=== PATIENT | male | born 1965 | race American Indian/Alaskan Native ===

== ENCOUNTER 2018-04-28 10:32 | Emergency (ER) | payer OTHER, MEDICAID, SELFPAY ==
[2018-04-28 10:46] VITALS: BP 155/106; PULSE 113; RESP 24; TEMP 36.8; O2SAT 99; BMI 56.2
--- NOTE | 2018-04-28 11:01 | ED.ABDPAIN ---
HPI - Abdominal Pain General Chief Complaint: Abdominal Pain Stated Complaint: bad stomach pain for an hour Time Seen by Provider: 04/28/18 10:57 Source: patient Mode of arrival: ambulatory Limitations: no limitations History of Present Illness HPI narrative: Patient complains of abdominal pain and vomiting for the last 3 hr after helping his elderly aunt and uncle move some boxes. Patient states that he has an ongoing problem with an abdominal wall hernia. He has had multiple surgeries and is actually scheduled to see his surgeon again next week to begin the preop process for another hernia repair. Patient states that these kinds of symptoms usually happen when he has strained the hernia area. Patient denies fevers. He was feeling fine before lifting boxes 3 hr ago. Patient states he has chronic diarrhea. MD complaint: abdominal pain Onset (ago): hour(s) (Three) Pain Consistency: constant Location: periumbilical Severity: moderate Severity scale (1-10): 8 Quality: cramping, stabbing and aching Radiation: none Migration to: no migration Relieving factors: nothing Exacerbating factors: vomiting and movement Context: other Associated symptoms: nausea and vomiting Treatments prior to arrival: other (States his oxycodone isn't touching it.) Related Data Home Medications Medication Instructions Recorded Confirmed albuterol sulfate [ProAir HFA] 2 puff INHALATION Q4H PRN 04/28/18 04/28/18 bupropion HCl 1 tab PO BID 04/28/18 04/28/18 cetirizine 1 tab PO DAILY 04/28/18 04/28/18 cholecalciferol (vitamin D3) 1 cap PO DAILY 04/28/18 04/28/18 [Vitamin D3] dicyclomine 1 tab PO TID PRN 04/28/18 04/28/18 fluticasone 1 spray INTRANASAL DIRECTED 04/28/18 04/28/18 ketorolac 1 drp OPHTHALMIC (EYE) DIRECTED 04/28/18 04/28/18 ketotifen fumarate 1 drp OPHTHALMIC (EYE) DIRECTED 04/28/18 04/28/18 omeprazole 1 cap PO QAM 04/28/18 04/28/18 ondansetron HCl 1 tab PO PRN PRN 04/28/18 04/28/18 oxycodone 1 tab PO Q4H PRN 04/28/18 04/28/18 pantoprazole 40 mg PO DAILY 04/28/18 04/28/18 ranitidine HCl 300 mg PO BEDTIME 04/28/18 04/28/18 Previous Rx's Medication Instructions Recorded dicyclomine 10 mg PO QID #20 cap 04/28/18 hydrocodone-acetaminophen [Vicodin 1 tab PO Q4-6H PRN #14 tab 04/28/18 ES] loperamide [Imodium A-D] 2 mg PO Q2-4H PRN #120 ml 04/28/18 Allergies Allergy/AdvReac Type Severity Reaction Status Date / Time Cephalexin Allergy Unknown Uncoded 04/28/18 10:46 EGGS Allergy Unknown DIARRHEA,RA Uncoded 04/28/18 10:46 SH From PROPOXYPHENE NAPSYLATE Allergy Unknown Uncoded 04/28/18 10:46 & ACETAMI... MILK Allergy Unknown DIARRHEA Uncoded 04/28/18 10:46 RASH SULFA (sulfonamide) Allergy Unknown Uncoded 04/28/18 10:46 Review of Systems Review of Systems All systems reviewed & are unremarkable except as noted in HPI and below Constitutional Denies chills, Denies fever(s), Denies lethargy and Denies weakness Eyes Denies change in vision, Denies eye discharge, Denies irritation and Denies loss of vision ENT Ears, Nose, Mouth, and Throat: Denies change in voice, Denies neck pain and Denies sore throat Cardiovascular Denies chest pain, Denies irregular heart rhythm, Denies lightheadedness, Denies palpitations, Denies dyspnea, Denies dyspnea on exertion and Denies orthopnea Respiratory Denies cough, Denies dyspnea, Denies dyspnea on exertion and Denies wheezing Gastrointestinal Gastrointestinal: Reports abdominal pain, Denies change in bowel habits, Reports diarrhea, Reports nausea and Reports vomiting Genitourinary Denies hematuria, Denies flank pain, Denies urinary incontinence and Denies urinary urgency Musculoskeletal Denies neck pain Integumentary/Breasts Denies pruritus, Denies erythema, Denies rash and Denies wounds Neurologic Denies confusion, Denies loss of vision and Denies weakness Psychiatric Denies anxiety, Denies confusion, Denies depression, Denies homicidal ideation and Denies suicidal ideation Endocrine Denies palpitations Hematologic/Lymphatic Denies easy bruising Allergic/Immunologic Denies wheezing [facility] Medical History Abdominal wall hernia (Acute) Chronic diarrhea (Acute) Surgical History H/O hernia repair (Acute) History of bowel resection (Acute) Social History Smoking Status: Current every day smoker Exam Initial Vital Signs Initial Vital Signs: Vital Signs Temperature 98.3 F 04/28/18 10:46 Pulse Rate 113 H 04/28/18 10:46 Respiratory Rate 24 04/28/18 10:46 Blood Pressure 155/106 H 04/28/18 10:46 Pulse Oximetry 99 04/28/18 10:46 Const General: cooperative and well developed Nutritional Appearance: well nourished Orientation: alert, awake, oriented x3 and not confused HENOK Head: normocephalic and atraumatic Ears: external ears normal Nose: external nose normal and No nasal discharge Face and sinus: face symmetric and No dry mucous membranes Mouth: oral mucosae normal and moist mucous membranes Teeth and gingiva: dentition normal Eyes General: appearance normal, both eyes and all related structures Eyelids: eyelids normal Conjunctivae: conjunctivae normal Sclera: sclerae normal Pupils: PERRL EOM: EOM intact bilaterally Neck Neck: normal visual inspection, trachea midline, No lymphadenopathy, No midline deformity and No JVD Lymphatic: No lymphedema Chest Chest: normal inspection of the chest Resp Effort & Inspection: normal respiratory effort, able to speak in complete sentences, no respiratory distress and no use of accessory muscles Auscultation: clear to auscultation bilaterally, no rales, no rhonchi and no wheezes Cardio Rate: regular rate Rhythm: regular rhythm Heart Sounds: no click, no gallops, no murmurs and no rubs Pulses: normal peripheral pulses GI Inspection: distended, large pannus and obesity Palpation: soft, no hepatosplenomegaly, No guarding, No pulsatile mass and tender (Moderate, diffuse; worse on the left side) Other: Patient has extensive surgical scarring over his abdominal wall, consistent with history of multiple surgeries. No mass or incarcerated hernia is palpable. Patient has no rebound tenderness. He intermittently dry heaves. Back/Spine/Pelvis Back: No CVA tenderness Cervical Spine: cervical ROM normal and No pain with cervical ROM Thoracic/Lumbar Spine: thoracic and lumbar spine normal to inspection Skin General: no rashes or lesions noted, No jaundice and No petechiae Neuro General: alert, oriented x3, gait normal and no focal motor deficits Speech: speech normal Extrem General: full ROM, no clubbing, cyanosis or edema, no pedal edema and no calf tenderness Psych Appearance: well kempt Mental Status: mental status grossly normal Attitude: cooperative Thought Content: normal and suicidality Judgment: judgment good Course Course Narrative: Patient was treated symptomatically in the emergency department, and worked up with labs and CT scan of the abdomen and pelvis. Labs were unremarkable, and CT scan showed the large abdominal wall hernia which is known, but no other acute abnormalities. There was no evidence of incarceration or strangulation. Patient was re-evaluated after symptomatic treatment and found to be feeling better. We have discussed home management of his symptoms, as well as the usual indications for return. Orders Ordered: ED Orders 04/28/18 11:00 Complete Blood Count AUTO DIFF Stat Comprehensive Metabolic Panel Stat Lipase Stat 04/28/18 13:18 CT abdomen pelvis w con Stat Discontinued Medications Hydromorphone HCl (Dilaudid) 1 mg IV NOW ONE Stop: 04/28/18 11:02 Last Admin: 04/28/18 11:09 Dose: 1 mg Hydromorphone HCl (Dilaudid) 2 mg IV NOW ONE Stop: 04/28/18 12:06 Last Admin: 04/28/18 12:16 Dose: 2 mg Hydromorphone HCl (Dilaudid) 2 mg IV NOW ONE Stop: 04/28/18 13:19 Last Admin: 04/28/18 13:34 Dose: 2 mg Sodium Chloride (Normal Saline 0.9%) 1,000 mls @ 1,000 mls/hr IV BOLUS ONE Stop: 04/28/18 12:00 Last Infusion: 04/28/18 13:05 Dose: 0 mls/hr Admin: 04/28/18 11:08 Dose: 1,000 mls/hr Lorazepam (Ativan) 1 mg IV NOW ONE Stop: 04/28/18 13:19 Last Admin: 04/28/18 13:34 Dose: 1 mg Metoclopramide HCl (Reglan) 10 mg IV NOW ONE Stop: 04/28/18 12:06 Last Admin: 04/28/18 12:16 Dose: 10 mg Ondansetron HCl (Zofran) 4 mg IV NOW ONE Stop: 04/28/18 11:02 Last Admin: 04/28/18 11:05 Dose: 4 mg Vital Signs - 8 hr 04/28/18 10:46 04/28/18 12:52 Temperature 98.3 F 98.3 F Pulse Rate 113 H 82 Respiratory Rate 24 18 Blood Pressure 155/106 H Blood Pressure [Left Arm] 140/66 Pulse Oximetry 99 97 MDM - Abdominal Pain Medical Records Attestation: I reviewed the patient's medical records. Lab Data Attestation: I reviewed the patient's lab results. Result diagrams: 04/28/18 11:00 04/28/18 11:00 Lab Results 04/28/18 04/28/18 Range/Units 11:00 11:00 WBC 7.1 (4.5-11.0) X10^3/uL RBC 5.59 (4.5-5.9) X10^6/uL Hgb 14.7 (13.5-17.5) g/dL Hct 44.3 (41-53) % MCV 79.2 L (80-100) fL MCH 26.4 (26-34) PG MCHC 33.3 (30-36) % RDW 17.1 H (11.6-14.8) % Plt Count 202 (150-400) X10^3/uL Neut % (Auto) 63.2 (50-75) % Lymph % (Auto) 29.3 (25-40) % [place] % (Auto) 6.0 (3-14) % Eos % (Auto) 1.1 L (2-4) % Baso % (Auto) 0.4 (0-2) % Neut # (Auto) 4500 (3194-1584) /uL Sodium 140 (137-145) mmol/L Potassium 4.4 (3.4-5.1) mmol/L Chloride 105 (98-107) mmol/L Carbon Dioxide 25 (22-32) mmol/L BUN 10 (9-20) mg/dL Creatinine 0.80 (0.66-1.25) mg/dL Estimated GFR > 60.0 (>60) mL/min BUN/Creatinine Ratio 12.5 (6-22) Glucose 117 H (70-100) mg/dL Calcium 9.1 (8.4-10.2) mg/dL Total Bilirubin 0.4 (0.2-1.3) mg/dL AST 30 (17-59) IU/L ALT 19 L (21-72) IU/L Alkaline Phosphatase 126 (38-126) U/L Total Protein 7.8 (6.3-8.2) g/dL Albumin 4.2 (3.5-5.0) g/dL Globulin 3.6 (1.7-4.1) g/dL Albumin/Globulin Ratio 1.2 (1.0-2.8) Lipase 97 (23-300) U/L Imaging Data CT scan - abdomen: Radiologist's impression: PROCEDURE: CT ABDOMEN PELVIS W CON INDICATIONS: abdominal pain, vomiting, hernia TECHNIQUE: After the administration of oral and intravenous contrast, 5 mm thick sections acquired from the diaphragms to the symphysis. 5 mm thick coronal and sagittal reformats were performed. For radiation dose reduction, the following was used: automated exposure control, adjustment of mA and/or kV according to patient size. COMPARISON: [facility], CT, CT ABDOMEN PELVIS WITH CONTRAST, 03/22/2018, 9:02. [facility], CT, CT ABDOMEN PELVIS WITH CONTRAST, 02/02/2018, 10:13. [facility], CT, ABD/PELVIS W/CON (PNL), 03/29/2012, 20:22. FINDINGS: Image quality: Diagnostic. ABDOMEN: Lung bases: Lung bases are clear. Heart size is normal. Solid organs: Liver is normal in size. No focal liver lesions are evident. The liver is noted to be hypodense when compared to the spleen. Gallbladder is surgically absent with. Biliary system is non-dilated. Pancreas enhances normally. Spleen is normal in size and enhancement. No adrenal nodules. Kidneys are normal in size and enhancement, without hydronephrosis. Punctate nonobstructing mid to superior right renal calculus is unchanged. Peritoneum and bowel: There is a large ventral hernia containing multiple bowel loops. No significantly dilated small bowel loops are evident to suggest a complete bowel obstruction. However, there are a few borderline prominent fluid-filled loops of small bowel within this region. Fat containing infraumbilical ventral hernia is also present. Moderate residual stool is seen within the colon. No free fluid, loculated fluid collection or free air is evident. Nodes and vessels: No retroperitoneal or mesenteric adenopathy. Aorta and inferior vena cava are normal in caliber. Bones: No acute fractures or suspicious osseous lesions are evident. The degree of degenerative changes of the spine have not significantly progressed. PELVIS: Genitourinary: Bladder wall thickness is normal. The prostate is not enlarged. Miscellaneous: No inguinal hernias or adenopathy. Bones: No suspicious bony lesions. No vertebral body compression fractures. IMPRESSION: 1. Large abdominal hernia containing multiple bowel loops. 2. No obstruction. 3. Constipation. 4. Probable hepatic steatosis. 5. Punctate nonobstructing right renal calculus is unchanged. Dictated by: Santos Sr M.D. on 04/28/2018 at 13:13 Approved by: Santos Sr M.D. on 04/28/2018 at 13:18 Discharge Plan Departure Patient Disposition: Home Clinical Impression: Abdominal pain, Hernia of anterior abdominal wall Discharge Date/Time: 04/28/18 14:58 Instructions: DI for Abdominal Pain-Adult Activity Restrictions/Additional Instructions: Your labs look good. Your CT scan shows the hernia, but otherwise no acute abnormalities or serious problems. Please continue your home medications, as directed. Please follow up with your surgeon as planned to prepare for your next abdominal surgery. Prescriptions: New dicyclomine 10 mg capsule 10 mg PO QID Qty: 20 RF: 0 loperamide [Imodium A-D] 1 mg/7.5 mL liquid 2 mg PO Q2-4H PRN (Reason: loose stool) Qty: 120 RF: 0 hydrocodone-acetaminophen [Vicodin ES] 7.5-300 mg tablet 1 tab PO Q4-6H PRN (Reason: pain) Qty: 14 RF: 0 No Action bupropion HCl 150 mg tablet extended release 12 hr 1 tab PO BID RF: 0 cetirizine 10 mg tablet 1 tab PO DAILY RF: 0 ketotifen fumarate 0.025 % (0.035 %) drops 1 drp ophthalmic (eye) DIRECTED RF: 0 ondansetron HCl 8 mg tablet 1 tab PO PRN PRN (Reason: Nausea) RF: 0 omeprazole 40 mg capsule,delayed release(DR/EC) 1 cap PO QAM RF: 0 dicyclomine 20 mg tablet 1 tab PO TID PRN (Reason: irritable bowel) RF: 0 pantoprazole 40 mg tablet,delayed release (DR/EC) 40 mg PO DAILY RF: 0 ranitidine HCl 150 mg tablet 300 mg PO BEDTIME RF: 0 albuterol sulfate [ProAir HFA] 90 mcg/actuation HFA aerosol inhaler 2 puff Inhalation Q4H PRN (Reason: Shortness Of Breath) RF: 0 fluticasone 50 mcg/actuation spray,suspension 1 spray Intranasal DIRECTED RF: 0 oxycodone 5 mg tablet 1 tab PO Q4H PRN (Reason: pain) RF: 0 ketorolac 0.4 % drops 1 drp ophthalmic (eye) DIRECTED RF: 0 cholecalciferol (vitamin D3) [Vitamin D3] 1,000 unit tablet 1 cap PO DAILY RF: 0
[2018-04-28] MEDS: ONDANSETRON 4 MG/2 ML INJ IV (11:05)
[2018-04-28 11:08] LABS: Add Manual Diff / Slide Review NO; Basophils Percent Auto 0.4 % (0-2); Eosinophils Percent Auto 1.1 % (2-4); Hematocrit 44.3 % (41-53); Hemoglobin 14.7 g/dL (13.5-17.5); Lymphocytes Percent Auto 29.3 % (25-40); Mean Corpuscular HGB Conc 33.3 % (30-36); Mean Corpuscular Hemoglobin 26.4 PG (26-34); Mean Corpuscular Volume 79.2 fL (80-100); Neutrophils Absolute Auto 4500 /uL (3000-5900); Neutrophils Percent Auto 63.2 % (50-75); Platelet Count 202 X10^3/uL (150-400); Red Blood Cell Count 5.59 X10^6/uL (4.5-5.9); Red Cell Distribution Width 17.1 % (11.6-14.8); White Blood Cell Count 7.1 X10^3/uL (4.5-11.0)
[2018-04-28] MEDS: SODIUM CHLORIDE 0.9% 1,000 ML 1000 ML IV (11:08)
[2018-04-28] MEDS: HYDROMORPHONE 1 MG INJ IV (11:09)
[2018-04-28 11:23] LABS: Alanine Aminotransferase 19 IU/L (21-72); Albumin 4.2 g/dL (3.5-5.0); Albumin Globulin Ratio 1.2 (1.0-2.8); Alkaline Phosphatase 126 U/L (38-126); Aspartate Aminotransferase 30 IU/L (17-59); BUN Creatinine Ratio 12.5 (6-22); Bilirubin Total 0.4 mg/dL (0.2-1.3); Blood Urea Nitrogen 10 mg/dL (9-20); Calcium 9.1 mg/dL (8.4-10.2); Carbon Dioxide 25 mmol/L (22-32); Chloride 105 mmol/L (98-107); Estimated Glomerular Filt Rate > 60.0 mL/min (>60); Globulin 3.6 g/dL (1.7-4.1); Glucose 117 mg/dL (70-100); HEMOLYSIS 19 (0-50); Lipase 97 U/L (23-300); Potassium 4.4 mmol/L (3.4-5.1); Sodium 140 mmol/L (137-145); Total Protein 7.8 g/dL (6.3-8.2)
[2018-04-28] MEDS: HYDROMORPHONE 1 MG INJ 2 MG IV ×2 (12:16→13:34)
[2018-04-28] MEDS: METOCLOPRAMIDE 10 MG/2 ML INJ IV (12:16)
[2018-04-28 12:52] VITALS: BP 140/66; PULSE 82; RESP 18; TEMP 36.8; O2SAT 97
--- NOTE | 2018-04-28 13:18 | DI.CT.S_ITS ---
PROCEDURE: CT ABDOMEN PELVIS W CON INDICATIONS: abdominal pain, vomiting, hernia TECHNIQUE: After the administration of oral and intravenous contrast, 5 mm thick sections acquired from the diaphragms to the symphysis. 5 mm thick coronal and sagittal reformats were performed. For radiation dose reduction, the following was used: automated exposure control, adjustment of mA and/or kV according to patient size. COMPARISON: [facility], CT, CT ABDOMEN PELVIS WITH CONTRAST, 03/22/2018, 9:02. [facility], CT, CT ABDOMEN PELVIS WITH CONTRAST, 02/02/2018, 10:13. [facility], CT, ABD/PELVIS W/CON (PNL), 03/29/2012, 20:22. FINDINGS: Image quality: Diagnostic. ABDOMEN: Lung bases: Lung bases are clear. Heart size is normal. Solid organs: Liver is normal in size. No focal liver lesions are evident. The liver is noted to be hypodense when compared to the spleen. Gallbladder is surgically absent with. Biliary system is non-dilated. Pancreas enhances normally. Spleen is normal in size and enhancement. No adrenal nodules. Kidneys are normal in size and enhancement, without hydronephrosis. Punctate nonobstructing mid to superior right renal calculus is unchanged. Peritoneum and bowel: There is a large ventral hernia containing multiple bowel loops. No significantly dilated small bowel loops are evident to suggest a complete bowel obstruction. However, there are a few borderline prominent fluid-filled loops of small bowel within this region. Fat containing infraumbilical ventral hernia is also present. Moderate residual stool is seen within the colon. No free fluid, loculated fluid collection or free air is evident. Nodes and vessels: No retroperitoneal or mesenteric adenopathy. Aorta and inferior vena cava are normal in caliber. Bones: No acute fractures or suspicious osseous lesions are evident. The degree of degenerative changes of the spine have not significantly progressed. PELVIS: Genitourinary: Bladder wall thickness is normal. The prostate is not enlarged. Miscellaneous: No inguinal hernias or adenopathy. Bones: No suspicious bony lesions. No vertebral body compression fractures. IMPRESSION: 1. Large abdominal hernia containing multiple bowel loops. 2. No obstruction. 3. Constipation. 4. Probable hepatic steatosis. 5. Punctate nonobstructing right renal calculus is unchanged. Dictated by: Santos Sr M.D. on 04/28/2018 at 13:13 Approved by: Santos Sr M.D. on 04/28/2018 at 13:18
[2018-04-28] MEDS: LORazepam 2 MG/ML SYRINGE 1 MG IV (13:34)
[2018-04-28 14:55] VITALS: BP 161/94; PULSE 103; RESP 19; TEMP 37.4; O2SAT 97
== END 2018-04-28 14:58 | disposition home or self-care (01) ==
PROVIDERS: Emergency Provider Emergency Medicine
DX: K43.9 Ventral hernia without obstruction or gangrene (principal); R10.9 Unspecified abdominal pain
CPT/HCPCS: 74177; 80053; 83690; 85025; 96361; 96374; 96375; 96376; 99283; 99285; J1170; J2060; J2405; J2765; Q9967